=== PATIENT | male | born 1975 | race Caucasian/White ===

== ENCOUNTER 2017-10-30 10:11 | Emergency (ER) | payer MEDICARE, MEDICAID ==
[~2017-10-30] VITALS: Ht 193 cm; Wt 122.5 kg
[~2017-10-30 10:11] MED LIST: METR500T PO; OMEP20CA10 PO
[2017-10-30 10:26] VITALS: BP 130/88
[2017-10-30] MEDS ORDERED: TRIA15CR61 TOP (11:07)
[2017-10-30] MEDS ORDERED: AMOX500C2 PO (11:07)
[2017-10-30] MEDS ORDERED: IBUP-1984 PO (11:07)
[2017-10-30] MEDS ORDERED: METH4TAB81 PO (11:07)
== END 2017-10-30 11:13 | disposition home or self-care (01) ==
LOC: ER 10:15
DX: L25.5 Unspecified contact dermatitis due to plants, except food (principal); K08.89 Other specified disorders of teeth and supporting structures; J45.909 Unspecified asthma, uncomplicated; G89.29 Other chronic pain; F15.90 Other stimulant use, unspecified, uncomplicated; Z90.49 Acquired absence of other specified parts of digestive tract; Z98.890 Other specified postprocedural states; Z59.0 Homelessness; Z60.2 Problems related to living alone; Z88.8 Allergy status to other drugs, medicaments and biological substances; Z79.899 Other long term (current) drug therapy
CPT/HCPCS: 99283

== ENCOUNTER 2017-11-06 08:05 | Emergency (ER) | payer MEDICARE, MEDICAID ==
[~2017-11-06] VITALS: Ht 185.4 cm; Wt 122.8 kg
[~2017-11-06 08:05] MED LIST changes: +IBUP-1984 PO; +METH4TAB81 PO; +TRIA15CR61 TOP
[2017-11-06 08:10] VITALS: BP 147/86
[2017-11-06] MEDS ORDERED: PENI250T2 PO (08:14)
[2017-11-06] MEDS ORDERED: IBUP-1984 PO (08:14)
== END 2017-11-06 08:28 | disposition home or self-care (01) ==
LOC: ER 08:06
DX: K08.89 Other specified disorders of teeth and supporting structures (principal); G89.29 Other chronic pain; J45.909 Unspecified asthma, uncomplicated; F15.90 Other stimulant use, unspecified, uncomplicated; Z59.0 Homelessness; Z60.2 Problems related to living alone; Z98.890 Other specified postprocedural states; Z88.8 Allergy status to other drugs, medicaments and biological substances; Z79.899 Other long term (current) drug therapy
CPT/HCPCS: 99283